=== PATIENT | male | born 1990 | race Caucasian/White ===

== ENCOUNTER 2021-10-31 16:44 | Emergency (ER) | payer OTHER ==
[~2021-10-31] VITALS: Ht 177.8 cm; Wt 95.3 kg
[2021-10-31] MEDS ORDERED: CYCL10TA16 PO (18:23)
[2021-10-31] MEDS ORDERED: NAPR375T6 PO (18:23)
[2021-10-31 18:50] VITALS: BP 132/69
== END 2021-10-31 18:40 | disposition home or self-care (01) ==
LOC: EDH 16:44
DX: M54.50 Low back pain, unspecified (principal); M25.562 Pain in left knee; V49.49XA Driver injured in collision with other motor vehicles in traffic accident, initial encounter; Y93.89 Activity, other specified; Y92.413 State road as the place of occurrence of the external cause; Y99.8 Other external cause status
CPT/HCPCS: 72100; 73562; 93005